=== PATIENT | female | born 1960 | race Hispanic/Latino ===

== ENCOUNTER 2024-04-16 10:36 | Emergency (ER) | payer MEDICARE ==
[~2024-04-16] VITALS: Ht 154.9 cm; Wt 88.9 kg
[2024-04-16 11:19] LABS: BASOPHILS # (AUTO) 0.05 K/uL (0.00-0.20); BASOPHILS % (AUTO) 0.5 % (0.0-5.0); EOSINOPHILS % (AUTO) 0.9 % (0.0-8.0); HEMATOCRIT 48.1 % (36-48); IMMATURE GRANULOCYTE ABSOLUTE 0.03 K/uL (0-1); LYMPHOCYTES # (AUTO) 1.8 K/uL (1.0-4.8); LYMPHOCYTES % (AUTO) 17.2 % (21.0-51.0); MEAN CORPUSCULAR HEMOGLOBIN 30.7 pg (27.0-33.0); MEAN CORPUSCULAR HGB CONC 33.7 g/dL (32.0-36.0); MEAN CORPUSCULAR VOLUME 91.1 fL (79-99); NEUTROPHILS # (AUTO) 7.7 K/uL (1.8-7.7); NEUTROPHILS % (AUTO) 72.1 % (40.0-77.0); PLATELET COUNT (AUTO) 201 K/uL (130-400); RED BLOOD CELL COUNT(AUTO) 5.28 MIL/uL (4.00-5.50); RED CELL DISTRIBUTION WIDTH 13.1 % (11.0-15.5); WHITE BLOOD COUNT (AUTO) 10.6 K/uL (4.8-10.8)
[2024-04-16 11:50] LABS: ALBUMIN 3.7 g/dL (3.5-5.0); BILIRUBIN,TOTAL 0.8 mg/dL (0.2-1.0); CREATININE 0.8 mg/dL (0.5-1.0); POTASSIUM 3.6 mmol/L (3.5-5.1); TOTAL PROTEIN, SERUM 7.7 g/dL (6.0-8.3)
[2024-04-16] MEDS: 0.9%NACL 1000ML 1,000 ML IV ONE (11:50)
[2024-04-16] MEDS: ONDANSETRON 4MG INJ IVP ONE (11:50)
[2024-04-16] MEDS: MORPHINE 4 MG SYG IVP ONE (11:50)
[2024-04-16 11:52] LABS: APPEARANCE,URINE CLOUDY (CLEAR); BILIRUBIN,URINE NEGATIVE (NEGATIVE); COLOR,URINE YELLOW (YELLOW); GLUCOSE, URINE (UA) NEGATIVE (NEGATIVE); KETONES,URINE 40 mg/dL (NEGATIVE); LEUKOCYTE ESTERASE ,URINE 25 Leu/uL (NEGATIVE); NITRATE,URINE NEGATIVE (NEGATIVE); OCCULT BLOOD,URINE MODERATE (NEGATIVE); PH,URINE 5.5 (5.0-8.0); PROTEIN,URINE 20 mg/dL (NEGATIVE); UROBILINOGEN,URINE 0.2 mg/dL (0.2-1.0)
[2024-04-16 11:56] LABS: ADD UA MICROSCOPIC YES
[2024-04-16 12:00] LABS: BACTERIA,URINE RARE /HPF (None Seen); MUCUS,URINE RARE LPF (None Seen); SQUAMOUS EPITHELIAL CELL,UR MANY /HPF (0-2)
[2024-04-16] MEDS: cefTRIAXone 1G VIAL IVPB ONE (12:46)
[2024-04-16] MEDS ORDERED: OMEP20CA12 PO (13:03)
[2024-04-16] MEDS ORDERED: CEPH500T PO (13:03)
[2024-04-16 13:25] VITALS: BP 135/80; PULSE 82; RESP 16; O2SAT 98
== END 2024-04-16 13:59 | disposition home or self-care (01) ==
LOC: EDH 10:36
DX: K29.70 Gastritis, unspecified, without bleeding (principal); N39.0 Urinary tract infection, site not specified; Z88.8 Allergy status to other drugs, medicaments and biological substances; Z90.49 Acquired absence of other specified parts of digestive tract
CPT/HCPCS: 99285; 74176; 96365; 96375; 96361; 80053; 83690; 85025; 81001; 36415; 93005; J7030; J0696; J2405; J2270